=== PATIENT | female | born 1975 | race African-American/Black ===

== ENCOUNTER 2017-10-28 23:17 | Emergency (ER) | payer OTHER ==
[~2017-10-28] VITALS: Ht 175.3 cm; Wt 113.4 kg
[2017-10-28 23:31] VITALS: BP 118/84
== END 2017-10-29 00:11 | disposition home or self-care (01) ==
LOC: ER 23:17
DX: S91.131A Puncture wound without foreign body of right great toe without damage to nail, initial encounter (principal); W21.31XA Struck by shoe cleats, initial encounter; Y93.89 Activity, other specified; Y92.017 Garden or yard in single-family (private) house as the place of occurrence of the external cause; Y99.8 Other external cause status